=== PATIENT | female | born 1970 | race Caucasian/White ===

== ENCOUNTER 2018-10-14 09:51 | Emergency (ER) | payer MEDICARE, MEDICAID ==
[~2018-10-14] VITALS: Ht 167.6 cm; Wt 100.0 kg
[~2018-10-14 09:51] MED LIST: HYDR1TAB PO; IBUP-1984 PO; MELO-82 PO; ONDA4TAB12 PO; SYN0.025T PO; [UNRECOGNIZED DRUG - REMARK]; iron sulfate
[2018-10-14 09:54] VITALS: BP 154/110
--- NOTE | 2018-10-14 11:52 | NUR ---
relieving RN for lunch, pt is resting quietly on rney
--- NOTE | 2018-10-14 11:55 | NUR ---
[employer]fgrass technician at bedside
== END 2018-10-14 12:40 | disposition home or self-care (01) ==
LOC: ER 09:52
DX: S93.401A Sprain of unspecified ligament of right ankle, initial encounter (principal); R60.0 Localized edema; M25.572 Pain in left ankle and joints of left foot; M19.90 Unspecified osteoarthritis, unspecified site; G89.29 Other chronic pain; Z79.1 Long term (current) use of non-steroidal anti-inflammatories (NSAID); Z86.19 Personal history of other infectious and parasitic diseases; Z88.6 Allergy status to analgesic agent; Z79.899 Other long term (current) drug therapy; Z56.0 Unemployment, unspecified; X50.1XXA Overexertion from prolonged static or awkward postures, initial encounter; Y93.89 Activity, other specified; Y92.098 Other place in other non-institutional residence as the place of occurrence of the external cause; Y99.8 Other external cause status
CPT/HCPCS: 73610; 93971; 99284

== ENCOUNTER 2020-09-16 14:39 | Outpatient (CLI) | payer BC ==
[2020-09-16 14:50] LABS: BASOPHILS % (AUTO) 0.5 % (0-1); EOSINOPHILS # (AUTO) 0.1 X10'3 (0-0.9); EOSINOPHILS % (AUTO) 2.8 % (0-6); HEMATOCRIT 32.4 % (35.0-45.0); HEMOGLOBIN 10.9 g/dl (12.0-16.0); LYMPHOCYTES # (AUTO) 1.1 X10'3 (1.1-4.8); LYMPHOCYTES % (AUTO) 23.1 % (21-51); MEAN CORPUSCULAR HEMOGLOBIN 29.2 PG (27.0-31.0); MEAN CORPUSCULAR HGB CONC 33.6 g/dL (33.0-36.5); MEAN PLATELET VOLUME 7.6 FL (7.4-10.4); MONOCYTES # (AUTO) 0.5 X10'3 (0-0.9); MONOCYTES % (AUTO) 10.6 % (2-12); NEUTROPHILS # (AUTO) 2.9 X10'3 (1.8-7.7); PLATELET COUNT 307 X10'3 (140-440); RED BLOOD COUNT 3.72 X10'6 (4.20-5.60); RED CELL DISTRIBUTION WIDTH 16.5 % (11.5-14.5); WHITE BLOOD COUNT 4.6 X10'3 (4.5-11.0)
[2020-09-16 14:57] LABS: ALANINE AMINOTRANSFERASE 43 U/L (12-78); ALBUMIN 3.8 G/DL (3.4-5.0); ALKALINE PHOSPHATASE 118 IU/L (46-116); ANION GAP 9 (8-16); ASPARTATE AMINO TRANSFERASE 39 U/L (10-37); BILIRUBIN,TOTAL 0.8 MG/DL (0.1-1.0); BLOOD UREA NITROGEN 19 MG/DL (7-18); BUN/CREATININE RATIO 18.3 (6.6-38.0); C-REACTIVE PROTEIN 1.38 MG/DL (0.0-0.5); CALCIUM 8.8 MG/DL (8.5-10.1); CHLORIDE 100 MMOL/L (99-107); CREATININE 1.04 MG/DL (0.40-0.90); GLUCOSE 85 MG/DL (70-104); POTASSIUM 4.1 MMOL/L (3.5-5.1); SODIUM 138 MMOL/L (135-145); TOTAL CARBON DIOXIDE 29.1 MMOL/L (24-32); TOTAL PROTEIN 7.5 G/DL (6.4-8.2); eGFR 56 ML/MIN
== END 2020-09-16 23:59 | disposition home or self-care (01) ==
LOC: LAB SPEC 14:39
PROVIDERS: ATTEND Internal Medicine
DX: M00.861 Arthritis due to other bacteria, right knee (principal)
CPT/HCPCS: 36415; 80053; 85025; 85651; 86140

== ENCOUNTER → 2023-03-29 | Emergency (ER) | payer OTHER, MEDICAID ==
[~2023-03-29] VITALS: Ht 167.6 cm; Wt 108.1 kg
[2023-03-29 15:45] VITALS: BP 173/98; PULSE 74; RESP 16; TEMP 98.1; O2SAT 96
[2023-03-29 16:32] LABS: EOSINOPHILS # (AUTO) 0.1 X10'3 (0-0.9); EOSINOPHILS % (AUTO) 1.4 % (0-6); HEMATOCRIT 35.7 % (35.0-45.0); LYMPHOCYTES # (AUTO) 1.3 X10'3 (1.1-4.8); LYMPHOCYTES % (AUTO) 25.5 % (21-51); MEAN CORPUSCULAR HEMOGLOBIN 29.6 PG (27.0-31.0); MEAN CORPUSCULAR HGB CONC 33.6 g/dL (33.0-36.5); MEAN CORPUSCULAR VOLUME 88.1 FL (78-98); MEAN PLATELET VOLUME 7.2 FL (7.4-10.4); MONOCYTES # (AUTO) 0.4 X10'3 (0-0.9); MONOCYTES % (AUTO) 8.3 % (2-12); NEUTROPHILS # (AUTO) 3.3 X10'3 (1.8-7.7); NEUTROPHILS % (AUTO) 63.8 % (42-75); PLATELET COUNT 270 X10'3 (140-440); RED BLOOD COUNT 4.05 X10'6 (4.20-5.60); RED CELL DISTRIBUTION WIDTH 15.7 % (11.5-14.5); WHITE BLOOD COUNT 5.2 X10'3 (4.5-11.0)
[2023-03-29 16:41] LABS: APTT 31 SECONDS (22-32); PROTHROMBIN TIME 10.3 SECONDS (9.0-12.0)
[2023-03-29 16:47] LABS: ALANINE AMINOTRANSFERASE 39 U/L (12-78); ALBUMIN 3.5 G/DL (3.4-5.0); ALBUMIN/GLOBULIN RATIO 0.9 (1.1-1.5); ALKALINE PHOSPHATASE 102 IU/L (46-116); ANION GAP 10 (8-16); ASPARTATE AMINO TRANSFERASE 32 U/L (10-37); BILIRUBIN,TOTAL 0.4 MG/DL (0.1-1.0); BLOOD UREA NITROGEN 18 MG/DL (7-18); BUN/CREATININE RATIO 19.1 (10.0-20.0); CALCIUM 9.7 MG/DL (8.5-10.1); CHLORIDE 104 MMOL/L (99-107); CREATININE 0.94 MG/DL (0.40-0.90); GLUCOSE 119 MG/DL (70-104); POTASSIUM 3.5 MMOL/L (3.5-5.1); SODIUM 141 MMOL/L (135-145); TOTAL CARBON DIOXIDE 27.5 MMOL/L (24-32); TOTAL PROTEIN 7.3 G/DL (6.4-8.2); eCRCL 64 ML/MIN; eGFR 62 ML/MIN
== END | disposition left against medical advice (07) ==
LOC: ER 15:33
DX: M79.89 Other specified soft tissue disorders (principal); E07.9 Disorder of thyroid, unspecified; Z98.890 Other specified postprocedural states; Z56.0 Unemployment, unspecified; Z88.5 Allergy status to narcotic agent; Z79.1 Long term (current) use of non-steroidal anti-inflammatories (NSAID); Z79.899 Other long term (current) drug therapy
CPT/HCPCS: 36415; 80053; 84145; 85025; 85610; 85730; 99283

== ENCOUNTER 2025-01-21 11:28 | Emergency (ER) | payer BC, MEDICAID ==
[~2025-01-21 11:28] MED LIST changes: +ONDA-243 PO; -ONDA4TAB12 PO
== END 2025-01-21 11:39 | disposition left against medical advice (07) ==
LOC: ER 11:29
DX: Z00.8 Encounter for other general examination (principal); Z53.21 Procedure and treatment not carried out due to patient leaving prior to being seen by health care provider

== ENCOUNTER 2025-01-23 07:53 | Emergency (ER) | payer BC, MEDICAID ==
[~2025-01-23] VITALS: Ht 165.1 cm; Wt 109.8 kg
--- NOTE | 2025-01-23 09:14 | Physician Documentation ---
History of Present Illness ~ Chief Complaint: Cold, cough & congestion Stated Complaint: COLD/COUGH/CONGESTION Time Seen by MD: 09:00 Primary Medical Doctor: Shantanu Campos Source: patient (13) Mode of Arrival: KAISEREvie PEDRO PABLO Who comes in for evaluation of everything in my head. She means that she has viral URI symptoms, which began about a week ago. She reports that it began with feeling tired and having body aches all over, and she quickly developed a cough which is productive of yellow and green sputum. A couple of days ago the patient took an ambulance to the hospital but left before she could even be triaged; she reports that she might have had a tactile fever on that day, and I had a couple of episodes of vomiting --one because she had post-tussive emesis, and once because she drank some eggnog. The patient reports severe congestion, sore throat, bilateral ear pain, headache and body aches, is not vaccinated against COVID-19. She has taken nothing for her symptoms at any point. Medication Reconciliation Allergies: Coded Allergies: codeine (Verified Allergy, Intermediate, RASH, 01/23/25) Scheduled Hydrocodone/Acetaminophen (Vicodin 5-500 Tablet), 2 TAB PO TID, (Reported) Ibuprofen* (Motrin*), 800 MG PO BID, (Reported) Levothyroxine Sodium* (Synthroid*), 25 MCG PO DAILY, (Reported) Meloxicam (Meloxicam), 15 MG PO DAILY, (Reported) [iron sulfate], 325 MG abhijeet, (Reported) [z allergy], 25 MG lizbeth, (Reported) Scheduled PRN Albuterol Sulfate (Ventolin Hfa), 2 PUFFS INH Q4HPRN PRN for wheezing ONDANSETRON ODT 4mg tablet (Ondansetron Odt), 1 TABLET PO Q6H PRN for nausea/vomiting Past Medical History Past Medical History: Hypertension, Hepatitis C, Thyroid (unspecified), Arthritis, Chronic Pain, Chronic Back Pain Past Surgical History: , other Smoking Status: Never smoker Alcohol Use: None 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 Eyes: Conjunctiva normal. EOMI ENT: Mucous membranes moist. Oropharynx normal. Significant nasal congestion. BL TMs intact without redness. Heavy load cerumen L Neck: Supple and nontender Chest: There is no accessory muscle use or retractions. Pt with audible w heezing, and very frequent wet-sounding cough. No real rales appreciated, although there is a lot of congestion that moves with cough Cardiac: Regular rate and rhythm without murmurs, gallops or rubs. Palpation of the chest wall is normal. Abd: Soft, nondistended, nontender, with normoactive bowel sounds. No guarding or rebound. Extremities: Within normal limits without cyanosis, clubbing, or edema. Skin: [place], warm and dry with no significant rash appreciated. Neuro: Cranial nerves II-XII grossly intact. The gait is normal. Progress Results/Orders Results/Orders Orders - APRIS EGAN MD Svn Treatment (01/23/25 09:14) Covid19 Binax Poc Result Entry (01/23/25 09:14) Acetaminophen 325mg Tablet (Tylenol Tabl (01/23/25 09:15) Chest,Two Views (01/23/25 09:23) Completed Orders - PARIS EGAN MD Prednisone Tablet (Prednisone Tablet) (01/23/25 09:15) Influenza Type A&B Rapid Test (01/23/25 09:14) Ipratropium/Albuterol Nebule (Ipratrop/A (01/23/25 09:15) Ibuprofen Tablet (Motrin Tablet) (01/23/25 09:15) Benzonatate Capsule (Tessalon Perles Cap (01/23/25 09:15) Pseudoephedrine Tablet (Sudafed Tablet) (01/23/25 09:15) Chest,Two Views (01/23/25 09:23) Vital Signs 01/23/25 01/23/25 01/23/25 01/23/25 07:57 08:21 08:24 09:36 Temp 98.4 Pulse 72 79 73 Resp 17 16 20 17 B/P (MAP) 143/87 152/92 (112) Pulse Ox 97 99 97 O2 Delivery Room Air* O2 Flow Rate 0 FiO2 21 01/23/25 01/23/25 01/23/25 09:42 09:43 11:27 Temp 98.4 Pulse 76 72 Resp 17 16 15 B/P (MAP) 170/100 (123) 165/87 Pulse Ox 99 100 O2 Delivery Room Air* O2 Flow Rate 0 FiO2 21 Laboratory Tests Test 01/23/25 09:44 Influenza Type A Antigen Negative Influenza Type B Antigen Negative SARS-CoV-2 Antigen (Rapid) Negative Re-Evaluation Re-Evaluation : Re-Evaluation Time: 11:09 Progress Re-evaluation: The patient is soundly sleeping, oxygen saturation 94%. Some residual cough while awake, diminished wheezing on auscultation. Medical Decision Making Additional information obtaine: N/A Findings Differential Dx:Considerations: Include: Allergic rhinitis, Influenza, Pharyngitis-Viral, Pnuemonitis, Sinusitis, URI; Unlikely: Otitis media, Peritonsillar abscess, Pharyngitis-Diphtheria, Pharyngitis-Streptoccal, Pneumonia Differential Diagnosis Patient presenting with upper respiratory symptoms, body aches, congestion, and cough. She did have some bronchospasm noted on examination, no evidence for pneumonia. No evidence for sepsis. The patient has a negative influenza screen, COVID remains pending at this time. She will be discharged with a prescription for bronchodilators which will help with both cough and wheezing. I will also make recommendations for tdly-zrg-vpbqwic medications for symptom relief. She reports that she had some abnormalities on her chest x-ray previously noted by [facility]. X-ray here as read as negative with no evidence for pneumonia and no other abnormalities reported; I have told the patient that she should follow up with whenever further recommendations [facility] had originally given her. Patient understands to return to the emergency department should she have any fever or any worsening of her symptoms or other concerns. Departure Time of Disposition: 11:07 Disposition: 01 HOME / SELF CARE / HOMELESS Impression: Primary Impression: Cough Additional Impressions: Acute respiratory infection Upper respiratory infection Bronchospasm Condition: Stable Discharge Instructions: Upper Respiratory Infection, Adult Additional Instructions: You have been prescribed an inhaler which you can use to help with breathing, wheezing, and also cough. You may also feel better if you take vrab-jvh-hcplrdw remedies such as ibuprofen, Tylenol, and a decongestant. Stay well hydrated and rest. Follow-up with your clinic in the next 2-3 days for a recheck. Return to the emergency department immediately if you have fever, difficulty breathing, or any other concerns. Referrals: NO PRIMARY CARE PROVIDER (PCP) Prescriptions Albuterol Sulfate (Ventolin Hfa) 90 Mcg Hfa.aer.ad 2 PUFFS INH Q4HPRN PRN for wheezing for 30 Days, #18 GM 0 Refills Prov: PARIS EGAN MD 01/23/25 Education Educated: Patient Educated regarding: diagnosis, treatment Signature Scribe Signature: Attestation: PARIS EGAN MD Jan 23, 2025 09:14
[2025-01-23 09:36] VITALS: PULSE 73; RESP 17; O2SAT 97
[2025-01-23] MEDS: ipratropium/albuterol 3ml nebule NEB ONE (09:36)
[2025-01-23] MEDS: pseudoephedrine 30mg tablet PO ONE (09:41)
[2025-01-23 09:42] VITALS: PULSE 76; RESP 17; O2SAT 99
[2025-01-23 09:43] VITALS: PULSE 72; O2SAT 100
--- NOTE | 2025-01-23 10:00 | RADIOLOGY REPORT ---
CHEST RADIOGRAPH INDICATION: cough TECHNIQUE: Frontal and lateral view of the chest was obtained COMPARISON: None FINDINGS: Lines and Tubes: None Lungs: Clear Pleura: No effusion. No pneumothorax. Cardiomediastinal contours: Unremarkable Bones: Unremarkable IMPRESSION: 1. No evidence of acute disease.
[2025-01-23 10:27] LABS: INFLUENZA TYPE A ANTIGEN RAPID NEGATIVE (Negative); INFLUENZA TYPE B ANTIGEN RAPID NEGATIVE (Negative)
[2025-01-23] MEDS ORDERED: ALBU18HF2 INH (11:09)
[2025-01-23 11:27] VITALS: BP 165/87; RESP 15; TEMP 98.4
== END 2025-01-23 11:30 | disposition home or self-care (01) ==
LOC: ER 07:53
DX: J06.9 Acute upper respiratory infection, unspecified (principal); J98.01 Acute bronchospasm; I10 Essential (primary) hypertension; G89.29 Other chronic pain; M19.90 Unspecified osteoarthritis, unspecified site; F15.90 Other stimulant use, unspecified, uncomplicated; Z88.5 Allergy status to narcotic agent; Z86.19 Personal history of other infectious and parasitic diseases; Z79.899 Other long term (current) drug therapy; Z56.0 Unemployment, unspecified; Z98.890 Other specified postprocedural states; Z20.822 Contact with and (suspected) exposure to COVID-19
CPT/HCPCS: 36415; 71046; 87804; 87811; 94640; 99284; J7512; 94760